=== PATIENT | female | born 1980 | race Caucasian/White ===

== ENCOUNTER → 2018-02-26 | Outpatient (CLI) | payer OTHER ==
[~2018-02-26] MED LIST: ACET325C5 PO; IBUP200T64 PO; INTE44DI INJ; LACT1CAP37 PO; LEVO75TA5 PO
== END ==
LOC: STAR 14:10
PROVIDERS: ATTEND Specialist
DX: Z02.9 Encounter for administrative examinations, unspecified (principal)